=== PATIENT | female | born 1980 | race Caucasian/White ===

== ENCOUNTER 2022-09-21 12:19 | Emergency (ER) | payer MEDICAID, SELFPAY ==
[2022-09-21 12:38] VITALS: BP 119/95; PULSE 92; RESP 18; TEMP 37.1; O2SAT 93; BMI 26.5
--- NOTE | 2022-09-21 12:54 | CRLHL7_ITS ---
For Patients: As a result of the Cures Act, medical imaging exams and procedure reports are released immediately into your electronic medical record. You may view this report before your referring provider. If you have questions, please contact your health care provider. Indication: Injury, fell down stairs in heels Comparison: None available Technique: AP, lateral, and oblique views right foot were obtained. Findings: There is a comminuted fracture of the distal 5th metatarsal. No other displaced injuries are appreciated. There hammertoe changes of the 2nd through 5th digits. There is mild to moderate forefoot soft tissue swelling. Impression: Comminuted fracture of the distal 5th metatarsal Dictated by Yeyo Solares MD @ 09/21/2022 1:35:22 PM (Electronically Signed)
--- NOTE | 2022-09-21 12:54 | CRLHL7_ITS ---
For Patients: As a result of the Cures Act, medical imaging exams and procedure reports are released immediately into your electronic medical record. You may view this report before your referring provider. If you have questions, please contact your health care provider. Indication: Injury, pain Technique: Right ankle 3 views Comparison: None Findings: Bones: Alignment is normal. No fractures or bone lesions. Joint spaces: Joint spaces are well maintained. No degenerative changes. Soft tissues: Mild lateral soft tissue swelling. Impression: No sign of acute fracture. Dictated by Chacorta Knowles MD @ 09/21/2022 1:32:49 PM (Electronically Signed)
--- NOTE | 2022-09-21 12:56 | ED_ITS ---
HPI - Extremity Injury (Lower) General Chief Complaint: Extremity Pain/Injury, Lower Stated Complaint: right foot and ankle injury Time Seen by Provider: 09/21/22 12:20 History of Present Illness HPI Narrative: This 42-year-old female comes in with an injury to her right foot and ankle that occurred last evening. She states that she was wearing 6 in platform type shoes and stumbled twisting her right ankle. She did not have any other injury. She did not hit her head or have loss of consciousness. She did get up and ambulate after the fall but this morning has not done any weight-bearing and has been using crutches. She attempted to make an appointment for a clinic visit narendra grande but the nurse that she should come into the ER because there was some bruising that she reported. Related Data Home Medications Medication Instructions Recorded Confirmed lorazepam 0.5 mg tablet 0.5 mg PO DAILY PRN anxiety 09/21/22 09/21/22 Allergies Allergy/AdvReac Type Severity Reaction Status Date / Time No Known Drug Allergies Allergy Verified 09/21/22 12:38 Review of Systems Status of ROS: Reports: 10 or more systems reviewed and unremarkable except as noted in History and below Narrative: Constitutional: No fevers, no weight gain or loss. Eyes: No discharge. No vision changes. HENT: No congestion, no sore throat, no ear pain. Cardiovascular: No chest pain, no palpitations. Respiratory: No shortness of breath, no wheezes, no cough. Gastrointestinal: No abdominal pain, no vomiting, no diarrhea. Genitourinary: No dysuria, no hematuria. Musculoskeletal: Right ankle and foot injury as described above. Skin: No rashes, no pruritis. Neurological: No dizziness, weakness, sensory change, speech change. Endo/Heme/Allergies: No bruising or bleeding. No polydipsia. Pysch: no suicidality, no anxiety, no insomnia. All other systems reviewed and are negative. Exam Narrative: Exam Narrative: Constitutional: Well-developed, well-nourished, no acute distress. HEENT: Normocephalic, atraumatic. Neck: Normal range of motion. Nontender. Supple. Heart: Regular. No murmurs. Normal rate. Intact distal pulses. Lungs: Clear to auscultation. No chest discomfort. No wheezes, rhonchi, or rales. Abdomen: Normal bowel sounds. Nontender. No rebound tenderness. Genitalia: Deferred. Back: No midline tenderness. Normal range of motion. Extremities: Mild swelling with bruising over the lateral malleolus of the right ankle and over the lateral distal dorsal portion of her right foot. Skin: Intact. No rash. Warm. No erythema or pallor. Neurologic: No altered sensation. No weakness. Alert and oriented. Psychiatric: No suicidality. No anxiety or depression. No insomnia. Nursing notes and vitals signs are reviewed. Const: Vital Signs, click to edit/add: Vital Signs - 24 hr 09/21/22 12:38 Temperature 98.8 F Pulse Rate [Right Pulse Oximeter] 92 Respiratory Rate 18 Blood Pressure [Ri ght Upper Arm] 119/95 H Pulse Oximetry 93 Oxygen Delivery Me thod Room Air Course Vital Signs Vital signs: Initial Vital Signs Temperature 98.8 F 09/21/22 12:38 Temperature Source Temporal Artery Scan 09/21/22 12:38 Pulse Rate 92 09/21/22 12:38 Respiratory Rate 18 09/21/22 12:38 Blood Pressure 119/95 H 09/21/22 12:38 Blood Pressure Mean 103 09/21/22 12:38 Blood Pressure Position Sitting 09/21/22 12:38 Pulse Oximetry 93 09/21/22 12:38 Oxygen Delivery Method Room Air 09/21/22 12:38 Vital Signs Temperature 98.8 F 09/21/22 12:38 Pulse Rate 92 09/21/22 12:38 Respiratory Rate 18 09/21/22 12:38 Blood Pressure 119/95 H 09/21/22 12:38 Pulse Oximetry 93 09/21/22 12:38 Oxygen Delivery Method Room Air 09/21/22 12:38 Temperature 98.8 F 09/21/22 12:38 Pulse Rate 92 09/21/22 12:38 Respiratory Rate 18 09/21/22 12:38 Blood Pressure 119/95 H 09/21/22 12:38 Pulse Oximetry 93 09/21/22 12:38 Oxygen Delivery Method Room Air 09/21/22 12:38 MDM - Extremity Injury (Lower) MDM Narrative Medical decision making narrative: This patient comes in with an injury to her right lower extremity as described above. X-ray imaging of the right ankle shows no sign of fracture or dislocation. The x-ray of the right foot does show a comminuted fracture of the distal portion of the right 5th metatarsal. The patient was placed in a posterior splint using Ortho Glass material. She does have crutches that she can use. She is instructed to follow-up with orthopedic clinic as this will need fixation. Imaging Data XR R Ankle: Radiologist's impression: No sign of acute fracture. XR R Foot: Radiologist's impression: Comminuted fracture of the distal 5th metatarsal Discharge Plan Discharge Clinical Impression: Metatarsal fracture Patient Disposition: Home w/ Parent or Adult Condition: Unchanged Additional Instructions: Wear splint and avoid ambulating on the right leg. Use crutches for ambulating. Follow-up with orthopedic clinic for further management. Call for appointment at [phone]. Prescriptions: No Action lorazepam 0.5 mg tablet 0.5 mg PO DAILY PRN (Reason: anxiety) Stand Alone Forms: [employer]™ [employer] Info Instructions
== END 2022-09-21 14:15 | disposition home or self-care (01) ==
PROVIDERS: Emergency Provider Emergency Medicine Emergency Medical Services; PCP Family Medicine
DX: S92.535A Nondisplaced fracture of distal phalanx of left lesser toe(s), initial encounter for closed fracture (principal); W01.0XXA Fall on same level from slipping, tripping and stumbling without subsequent striking against object, initial encounter
CPT/HCPCS: 29515; 73610; 73630; 99283; 99284

== ENCOUNTER 2022-09-27 10:43 | Outpatient (CLI) | payer MEDICAID, SELFPAY | END 2022-09-27 10:44 | disposition home or self-care (01) | PROVIDERS: PCP Family Medicine; Visit Provider Family Medicine | DX: Z01.818 Encounter for other preprocedural examination (principal) | CPT/HCPCS: 80048; 85025 ==

== ENCOUNTER 2022-09-29 06:18 | Day surgery (SDC) | payer MEDICAID, SELFPAY ==
[2022-09-29] VITALS (7 sets, daily range): BP systolic 103–135; BP diastolic 66–96; PULSE 63–97; RESP 16; TEMP 36.1–37; O2SAT 96–99; BMI 27.6
[2022-09-29] MEDS: LACTATED RINGERS 1000 ML 1,000 ML 100 ML IV ×2 (06:25→09:33)
[2022-09-29 06:45] LABS: Ur HCG Qualitative* Negative (Negative)
[2022-09-29] MEDS: fentaNYL 100 MCG/2 ML inj IVP (07:25)
[2022-09-29] MEDS: MIDAZOLAM HCL 1 MG/ML inj IVP (07:25)
--- NOTE | 2022-09-29 07:30 | CRLHL7_ITS ---
For Patients: As a result of the Cures Act, medical imaging exams and procedure reports are released immediately into your electronic medical record. You may view this report before your referring provider. If you have questions, please contact your health care provider. Indication: INTRAOP RIGHT FOOT ORIF Technique: Three fluoroscopic images of the right foot. Fluoroscopic time 11.3 seconds. IMPRESSION: Fluoroscopic guidance for open reduction internal fixation of 5th metatarsal diaphyseal fracture. Dictated by Chacorta Knowles MD @ 09/29/2022 10:28:33 AM (Electronically Signed)
--- NOTE | 2022-09-29 07:32 | SUR.PREOP ---
TIME?OUT:?07 PT/RN/MDA?VERIFICATION?OF?SURGICAL?SITE,?PROCEDURE,?AND?CONSENT OBTAINED?PRIOR?TO?INVASIVE?PROCEDURE.
--- NOTE | 2022-09-29 07:35 | W.PM.H&PU ---
History & Physical Update History & Physical Update H&P Reviewed and patient assessed: No changes noted
--- NOTE | 2022-09-29 07:37 | P.ORPRC_ITS ---
Procedure Note Date of procedure: 09/29/22 Procedure: PREOPERATIVE DIAGNOSIS: 1. Closed, displaced, right 5th metatarsal fracture POSTOPERATIVE DIAGNOSIS: 1. Closed, displaced, right 5th metatarsal fracture PROCEDURE: 1. Right 5th metatarsal open reduction internal fixation 2. 07290 - intraoperative fluoroscopy up to 1 hour. SURGEON: Jose Guadalupe Ruelas MD. POWER WHEELCHAIR MECHANIC: Asia Loomis P.A.-C -An journeyman operator assistant was critical for this case to aid in patient positioning, tissue retraction, limb manipulation/positioning, and closure. ANESTHESIA: Popliteal block with MAC IMPLANTS: Synthes mini frag plate with 2.0 mm cortical locking and nonlocking screws and a 1.5 mm nonlocking cortical screw TOURNIQUET: 67 minutes at 250 mm Hg ESTIMATED BLOOD LOSS: < 5 mL COMPLICATIONS: None evident INDICATIONS: The patient is a pleasant 42-year-old female who sustained a right 5th metatarsal fracture. X-rays revealed significant displacement with mild comminution. Recommendation was subsequently made for surgical intervention consisting of open reduction internal fixation to stabilize the fracture and allow for more anatomic healing. FINDINGS: Comminuted, displaced, shortened, closed 5th metatarsal shaft fracture DESCRIPTION OF PROCEDURE: Following a thorough discussion of risks, benefits, and alternatives, consent was obtained and the operative extremity was marked. The patient was brought to the operating room and placed supine on the operating table. Induction of anesthesia was undertaken, and she was given IV Ancef preoperatively for prophylaxis. A Tourniquet placed on the patient's right calf, and the right lower extremity was prepped and draped under sterile fashion. A surgical time-out was performed confirming patient identity surgical site surgical procedure. Right leg was elevated exsanguinated and tourniquet was inflated to 250 mmHg. Longitudinal incision was made over the dorsal lateral aspect of the fifth metatarsal. Blunt dissection was used to dissect through subcutaneous tissues. Fracture was identified and was cleared of fracture hematoma interposed pe riosteum. fracture site was irrigated with normal saline. Reduction was performed and held with pointed reduction clamp. A 1.5 mm interfragmentary screw was placed across the fracture site. A mini frag plate was then selected and contoured to fit the dorsal lateral aspect of the 5th metatarsal. This was then fixed with combination of 2.0 mm cortical locking and nonlocking screws. Final fluoroscopic images were obtained which confirmed anatomic reduction of the fracture with proper plate and screw placement and screw length. Deep subcutaneous tissues were closed over the plate using 3-0 Vicryl [id number] interrupted sutures. The surgical site was thoroughly irrigated with normal saline. Tourniquet was released and hemostasis was achieved with electrocautery. skin was closed with 3-0 Vicryl inverted interrupted subcutaneous stitches followed by 4-0 Stratafix for subcuticular closure. Sterile dressings were applied followed by the application of a short-leg posterior splint. Patient was awoken from anesthesia and transferred to PACU in stable condition. PLAN: 1. Nonweightbearing right foot 2. Ice and elevation to control pain and swelling 3. Tylenol or Quail as needed for pain control 4. Follow-up in orthopedic clinic in 7-10 days for splint removal and wound check. We will transition to Cam boot or postop shoe at that time.
--- NOTE | 2022-09-29 07:50 | P.NB_ITS ---
Nerve Block Nerve Block Time Seen by Provider: 07:28 Date Seen: 09/29/22 Type of block requested by surgeon for post-operative analgesia: popliteal Side: right Time out performed: Yes Verification of patient name: Yes Verification of date of : Yes Site marking: site marked Name of person performing procedure: Endy Continuous monitoring Was continuous monitoring of O2 sat, B/P, floor inspector, recorded every 15 minutes?: Yes Procedure Checklist: sterile prep, needles and gloves Ultrasound guided. Images saved: Yes Medications given in 5ml increments after negative aspiration: Ropivicaine %: 0.5 mL: 20 Needle gauge: 22 Patient tolerated procedure well: Yes Additional comments: Needle noted adjacent to nerve Block Charges Block Charge (with Pro Fee): Sciatic Nerve Use of Ultrasound Machine for Block: Yes- US Guidance/pain block
--- NOTE | 2022-09-29 07:51 | W.ANESCHARGE ---
Anesthesia Charges Start Date/Time Anesthesia Start Date: 09/29/22 Anesthesia Start Time: 08:02 Stop Date/Time Anesthesia Stop Date: 09/29/22 Anesthesia Stop Time: 10:12
[2022-09-29] MEDS: CEFAZOLIN 1 GM inj IVP (08:08)
--- NOTE | 2022-09-29 10:13 | W.ANESCHARGE ---
Anesthesia Charges Start Date/Time Anesthesia Start Date: 09/29/22 Anesthesia Start Time: 08:02 Stop Date/Time Anesthesia Stop Date: 09/29/22 Anesthesia Stop Time: 10:12
== END 2022-09-29 11:31 | disposition home or self-care (01) ==
PROVIDERS: PCP Family Medicine; Visit Provider Orthopaedic Surgery
PROC: (CPT 28485; principal; 2022-09-29 07:30)
DX: S92.351A Displaced fracture of fifth metatarsal bone, right foot, initial encounter for closed fracture (principal); G89.18 Other acute postprocedural pain
CPT/HCPCS: 28485; 01462; 01480; 64445; 73620; 76000; 76942; 81025; A4580; C1713; J0690; J1100; J1885; J2250; J2405; J2704; J2795; J3010; J7120

== ENCOUNTER 2022-11-25 08:51 | Outpatient (RCR) | payer MEDICAID, SELFPAY ==
--- NOTE | 2022-11-26 08:31 | PT.OPEX ---
PT [facility] Eval PT [facility] Outpatient Eval Start: 11/25/22 16:35 Freq: Status: Active Protocol: Document 11/25/22 16:36 STEPHANIE (Rec: 11/25/22 16:39 STEPHANIE [id number]) E-signed By Chaya Menjivar DPT Physical Therapy Outpatient Evaluation Insurance Information Recert Due Date 01/24/23 Insurance Name Medicaid,[facility] Medical Diagnosis Fracture 5th metatarsal bone R foot Treating Diagnosis s/p ORIF for fx 5th metatarsal bone R foot 09/29/22 with R foot pain, impaired R toe/ ankle ROM, general weakness R foot/ankle, limping/antalgic gait in surgical shoe with recent progression back to WBAT R LE, limited tolerance for extended standing/walking/ stairs Subjective Subjective Patient reports falling on the stairs wearing heels on September 21. She went to the ED and had a fx to her 5th metatarsal. States she had ORIF with plate and screws 09/29. She was in a cast after surgery for about 10 days and then a CAM boot. States she was NWB from September 21 until a couple of weeks ago. She was able to start WBAT in the CAM boot and has transitioned to a surgical shoe on her R foot. States she is doing ok in the surgical shoe but has increased pain with trying to wear a sneaker. She reports some hypersensitivity to light touch, pressure. She has been trying to massage and desensitize her foot. That is helping some. She is not needing pain meds or tylenol. Hasn't been needing ice lately. Pain range 0-7/10. Sleep is interrupted at times due to hypersensitivity with the bed sheets. Patient is hoping to get some exercises to work on at home and wants to just continue with a HEP after this session. 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 Pain range 0-7/10. Patient reports some hypersensitivity to R foot with light touch/ pressure. Reviewed desensitization techniques this session. Patient is already doing some massaging, rubbing. She will continue with desensitization techniques at home. Patient is able to demonstrate R toe ROM WFL but with some tightness, stretching, and pain in R foot with movement. She is also able to demonstrate R ankle ROM WFL but again with some tightness with DF and PF ROM. Strength testing deferred s/p ORIF R foot 5th metatarsal fx. She is progressing well with her WBAT, now in surgical shoe. Gait is slow, limping, antalgic. Able to initiate HEP this session for ROM, stretching, strengthening, WB, balance/proprioception training, and gait training. Patient instructed to start with ROM, stretching, and gentle strengthening and progress with exercises as tolerated. She expressed understanding. Patient wants to continue on her own after this session, focusing on her HEP. Patient instructed to call with any questions/ concerns or to return to PT as needed in the upcoming weeks. Will hold chart x 6 weeks pending patient return as needed. Patient would benefit from skilled PT for pain/sx management, return to pain free R ankle/foot/toe ROM, improve R ankle/foot/LE strength, balance/ proprioception training, gait training, and establishment of HEP. Plan of Care Rehabilitation Potential Good Physical Therapy Goals 1. Decrease R toe/foot pain to less than/equal to 3/10 with daily/work activities and with the progression of PT activities over the next 4-6 weeks. 2. Return to pain free with R toe/ankle ROM WFL over the next 4-6 weeks for improved gait mechanics and return to PLF with daily/work activities . 3. Improve R toe/foot/ankle/ LE strength/stability over the next 8-10 weeks for return to normal gait, reciprocal stair negotiation, and PLF with daily/work activities, including extended standing/walking/physical activities without limitation secondary to pain/swelling. 4. Patient will be I with HEP within 10 weeks for progression toward above goals, ongoing self managment of pain/sx, ongoing improvements in R toe/foot/ankle/LE ROM/strength /stability, and for return to PLF with daily/work activities. Coordination/Communication With Referral Source Frequency/Duration 1x/week to 2-4 visits a month as needed. Patient goal is to continue with a HEP after one visit but she will call to return to PT as needed. Patient Will Be Discharged From Therapy Completion of LTG(s),Skills Plateau,Independent w/HEP, Independently Progressing Evaluation Billing Untimed Code Treatment Minutes 22 Complexity Moderate Certification Information Initial Certification Date 11/25/22 Ending Certification Date 01/24/23 Provider Signature Shows Agreement With POC & Medical Necessity Physician Signature & Date Requested Please Sign/Date Here Physician Comment/Change : Physician NPI Number #
== END 2023-03-07 15:07 | disposition home or self-care (01) ==
PROVIDERS: PCP Family Medicine; Visit Provider Orthopaedic Surgery
DX: S92.351D Displaced fracture of fifth metatarsal bone, right foot, subsequent encounter for fracture with routine healing (principal); M79.671 Pain in right foot; R26.89 Other abnormalities of gait and mobility; R53.1 Weakness; Z51.89 Encounter for other specified aftercare
CPT/HCPCS: 97110; 97162